=== PATIENT | female | born 1965 | race Hispanic/Latino ===

== ENCOUNTER 2016-06-07 10:45 | Emergency (ER) | payer MEDICARE ==
[2016-06-07 10:56] VITALS: TEMP 97.5; O2SAT 96
[2016-06-07] MEDS ORDERED: Oxycodone/Acetaminophen 5/325 mg Tab PO STA (11:35)
[2016-06-07] MEDS ORDERED: Oxycodone/Acetaminophen 5/325 mg Tab ONE (11:38)
--- NOTE | 2016-06-07 12:31 | C.PDOC ---
History Of Present Illness 51 y/o female presents to the ED with complains of left hip pain s/p fall 5 days ago. Pt works at [employer] and slipped on floor falling onto left side. Pt denies nay head trauma, weakness, numbness. Pt has been taking Advil OTC without relief Pt sent by employer for evaluation. Pt also presents with high blood pressure, pt denies history of HTN. Pt denies chest pain, headache, SOB or any other complaints. Time Seen by Provider: 06/07/16 11:13 Chief Complaint (Nursing): Hip Pain History Per: Patient History/Exam Limitations: no limitations Onset/Duration Of Symptoms: Days Current Symptoms Are (Timing): Still Present Severity: Moderate Recent travel outside of the [place]: No - Hip Description Of Injury: Fell Past Medical History Reviewed: Historical Data, Nursing Documentation, Vital Signs Vital Signs: Last Vital Signs Temp 97.5 F L 06/07/16 10:55 Pulse 86 06/07/16 12:38 Resp 18 06/07/16 12:38 BP 191/97 H 06/07/16 12:38 Pulse Ox 96 06/07/16 13:33 - Medical History PMH: Asthma, Back Problems - [facility] Procedures TETANUS TOXOID ADMINIST (02/18/14) Family History: States: Unknown Family Hx - Social History Hx Tobacco Use: No Hx Alcohol Use: No Hx Substance Use: No - Immunization History Hx Tetanus Toxoid Vaccination: No Hx Influenza Vaccination: Yes (11/2015) Hx Pneumococcal Vaccination: No Review Of Systems Except As Marked, All Systems Reviewed And Found Negative. Constitutional: Negative for: Fever Cardiovascular: Negative for: Chest Pain Respiratory: Negative for: Shortness of Breath Musculoskeletal: Positive for: Other (left hip pain) Neurological: Negative for: Weakness, Numbness, Headache Physical Exam - Physical Exam Appears: Non-toxic, No Acute Distress Skin: Warm, Dry, No Rash Head: Atraumatic, Normacephalic Neck: Normal ROM, No Midline Cervical Tenderness, No Paracervical Tenderness, Supple Cardiovascular: Rhythm Regular Respiratory: Normal Breath Sounds, No Rales, No Rhonchi, No Wheezing Gastrointestinal/Abdominal: Soft, No Tenderness Back: No Vertebral Tenderness, No Paraspinal Tenderness Extremity: Tenderness (lateral left hip; some pain with movement of the leg; no swelling, ecchymosis, or abrasions.), No Deformity Neurological/Psych: Oriented x3, Normal Motor, Normal Sensation Gait: Steady ED Course And Treatment O2 Sat by Pulse Oximetry: 96 (on room air) Pulse Ox Interpretation: Normal - Other Rad left hip xray X-Ray: Read By Radiologist Interpretation: Accession No. : [id number]. Patient Name / ID : JULISSA Britton / [id number]. Exam Date : 06/07/2016 11:39:14 ( Approved ). Study Comment : Sex / Age : F / 51Y. Creator : Yan Benedict MD. Dictator : Yan Benedict MD. Commodities Trader : Signals Intelligence Superintendent : Yan Benedict MD. Approver2 : Report Date : 06/07/2016 13:10:00. My Comment : . PROCEDURE: Left Hip X-ray Radiographs. AP view of the pelvis and both hips as well as frogleg lateral view left hip performed. HISTORY: pain. COMPARISON: No relevant prior studies available comparison. FINDINGS: BONES: Normal. No fracture. JOINTS: Joint spaces preserved. No significant osteoarthritis. SOFT TISSUES: Normal. OTHER FINDINGS: None. IMPRESSION: No evidence of acute displaced fracture nor dislocation. No significant degenerative osteoarthritis Progress Note: XR left hip negative for fracture or dislocation. Gave 1 Percocet for pain. Pt found to have elevated BP, gave Norvasc, instructed to follow up with PMD for proper mcc treatment. Disposition - Disposition Referrals: Omid Siegel MD [Staff Provider] - Disposition: HOME/ ROUTINE Disposition Time: 12:46 Condition: IMPROVED Additional Instructions: Follow up with your PMD within 1-2 days. Return to ED if feel worse. Prescriptions: Ibuprofen [Motrin Tab] 600 mg PO Q8 #30 tab amLODIPine [Norvasc] 5 mg PO DAILY #15 tab oxyCODONE/Acetaminophen [Percocet 5/325 mg Tab] 1 tab PO QID PRN #20 tab PRN Reason: Pain Instructions: Amlodipine (By mouth), Contusion in Adults (ED), Hypertension (ED ) Forms: Work Excuse - Clinical Impression Clinical Impression: Contusion, hip, Elevated blood pressure reading - PA / PACKAGE REINSPECTOR / Resident Statement MD/DO has reviewed & agrees with the documentation as recorded. - Scribe Statement The provider has reviewed the documentation as recorded by the Jannaibtommy Lacey All medical record entries made by the Jannaibtommy were at my direction and personally dictated by me. I have reviewed the chart and agree that the record accurately reflects my personal performance of the history, physical exam, medical decision making, and the department course for this patient. I have also personally directed, reviewed, and agree with the discharge instructions and disposition.
[2016-06-07 12:38] VITALS: PULSE 86; RESP 18
[2016-06-07 12:39] VITALS: BP 191/97
--- NOTE | 2016-06-07 13:11 | RAD ---
PROCEDURE: Left Hip X-ray Radiographs. AP view of the pelvis and both hips as well as frogleg lateral view left hip performed. HISTORY: pain COMPARISON: No relevant prior studies available comparison FINDINGS: BONES: Normal. No fracture. JOINTS: Joint spaces preserved. No significant osteoarthritis. SOFT TISSUES: Normal. OTHER FINDINGS: None. IMPRESSION: No evidence of acute displaced fracture nor dislocation. No significant degenerative osteoarthritis
== END 2016-06-07 13:02 | disposition home or self-care (01) ==
LOC: C.ER 10:45
DX: S70.02XA Contusion of left hip, initial encounter (principal); W01.0XXA Fall on same level from slipping, tripping and stumbling without subsequent striking against object, initial encounter; Y92.511 Restaurant or cafe as the place of occurrence of the external cause; Y99.0 Civilian activity done for income or pay; R03.0 Elevated blood-pressure reading, without diagnosis of hypertension

== ENCOUNTER 2018-07-10 13:19 | Outpatient (CLI) | payer MEDICARE | END 2018-07-10 13:20 | disposition home or self-care (01) | LOC: C.CTH 13:19 | DX: R05 Cough (principal) ==